=== PATIENT | male | born 2000 | race Two or more races ===

== ENCOUNTER 2021-11-04 21:10 | Emergency (ER) | payer SELFPAY ==
[~2021-11-04] VITALS: Ht 157.5 cm; Wt 59.1 kg
[2021-11-04 21:22] VITALS: BP 156/78
--- NOTE | 2021-11-04 22:45 | RAD ---
EXAM: 3 views of the left foot DATE: 11/04/2021 10:35 PM INDICATION: Reason: second toe pain stepped on a nail / Spl. Instructions: / History: COMPARISON: No Prior FINDINGS: There are punctate metallic foreign bodies residing at the cortical surface of the second middle phal anx. There is a subtle lucency extending to the articular surface suggestive of a nondisplaced fractu re. Joint spaces are preserved without significant degenerative/proliferative change. No significant soft tissue swelling. IMPRESSION: Radiographic findings of a nondisplaced intra-articular fracture of the second middle phalanx with pu nctate retained metallic foreign bodies. Electronically signed by: Bharat Clay DO (11/04/2021 10:43 PM) [facility]
--- NOTE | 2021-11-04 23:06 | PHYS DOC ---
Past Medical History Past Surgical History: No Surgical History General Adult EDM: Chief Complaint: FOOT INJURY PAIN HPI: HPI: Patient is a 21 year old male with no significant medical history who presents the ED today complaining of puncture wound to the left second toe. Patient states he stepped on a nail 5 days ago and it went through and through the second left toe. Patient states he was given tetanus vaccine at [facility]. He states he has continued to have pain to the area. Rates the pain at 7 out of 10, describes the pain as throbbing and intermittent worse on weightbearing. Review of Systems: Review of Systems: Constitutional: Denies fever or chills. [] Musculoskeletal: Reports puncture wound to the left second toe Integument: Denies rash. [] Neurologic: Denies headache, focal weakness or sensory changes. [] ] Psychiatric: Denies depression or anxiety. [] Heart Score: C/O Chest Pain: N/A Risk Factors: Risk Factors: DM, Current or recent (<one month) smoker, HTN, HLP, family history of CAD, obesity. Risk Scores: Score 0 - 3: 2.5% MACE over next 6 weeks - Discharge Home Score 4 - 6: 20.3% MACE over next 6 weeks - Admit for Clinical Observation Score 7 - 10: 72.7% MACE over next 6 weeks - Early Invasive Strategies Allergies: Allergies: Allergies Coded Allergies Type Severity Reaction Last Updated Verified No Known Drug Allergies 11/04/21 No Physical Exam: PE: Constitutional: Well developed, well nourished, no acute distress, non-toxic appearance. [] Skin: see extremity Back: No tenderness, no CVA tenderness. [] Extremities: Mid phalanx of the left second toe with a puncture on the dorsal aspect, with exit wound ventral aspect mid phalanxy of the second toe. There is no signs of infection, there is no drainage. There is diffuse tenderness to t he mid phalanx of the toe. Patient able to wiggle the left second toe. +2 left pedal pulse. Cap refill less than 2 seconds the left second toe Neurologic: Alert and oriented X 3, normal motor function, normal sensory function, no focal deficits noted. [] Psychologic: Affect normal, judgement normal, mood normal. [] Current Patient Data: Vital Signs: Vital Signs Date Time Temp Pulse Resp B/P (MAP) Pulse Ox O2 Delivery O2 Flow Rate FiO2 11/04/21 21:22 98.0 83 20 156/78 (104) 99 Room Air 98.0 EKG: EKG: [] Radiology/Procedures: Radiology/Procedures: []PROCEDURE: FOOT LEFT 3V EXAM: 3 views of the left foot DATE: 11/04/2021 10:35 PM INDICATION: Reason: second toe pain stepped on a nail / Spl. Instructions: / History: COMPARISON: No Prior FINDINGS: There are punctate metallic foreign bodies residing at the cortical surface of t he second middle phalanx. There is a subtle lucency extending to the articular surface suggestive of a nondisplaced fracture. Joint spaces are preserved without significant degenerative/proliferative change. No significant soft tissue swelling. IMPRESSION: Radiographic findings of a nondisplaced intra-articular fracture of the second middle phalanx with punctate retained metallic foreign bodies. Electronically signed by: Eleanor Mcfadden DO (11/04/2021 10:43 PM) [facility] DICTATED and SIGNED BY: ELEANOR MCFADDEN DO DATE: 11/04/21 [id number] 0 Course & Med Decision Making: Course & Med Decision Making Pertinent Labs and Imaging studies reviewed. (See chart for details) This is a 21-year-old male patient presenting to the ED today to be evaluated for puncture wound on the left second toe that he sustained 5 days ago after stepping on a nail that went through his left second toe. There is no infection to the region. Patient received a tetanus vaccine at [facility] on Wednesday. Left foot x-rays interpreted by radiologist were noted for radiographic findings of a nondisplaced intra-articular fracture of the second middle phalanx with punctate retained metallic foreign bodies. I spoke to -he stated if there is no infection patient can be discharged to home and follow-up in the clinic. He requested we discharge patient on Cipro Left second toe and third toes were malachi taped by me and patient placed in an orthopedic shoe by me. Neurovascular exam is normal. Patient was given 1 g of Rocephin IM in the ED, he was started on Cipro. He was provided orthopedic doctor for follow-up and provided strict return precautions Dragon Disclaimer: Dragon Disclaimer: This electronic medical record was generated, in whole or in part, using a voice recognition dictation system. Departure Departure Impression: Primary Impression: Nondisplaced fracture of middle phalanx of left lesser toe(s), initial encounter for open fracture Disposition: HOME / SELF CARE / HOMELESS Condition: STABLE Referrals: NO PCP (PCP) KINA SOSA MD Call his office tomorrow and set up a follow-up appointment Patient Instructions: Toe Fracture, [id number] Additional Instructions: You stepped on a nail and broke your left second toe, you also have tiny metallic pieces in that toe. This pieces typically make their way of the foot at some point. You can wash your left foot once a day and apply Neosporin to the puncture wounds. Please take the prescribed antibiotics until completed. Please contact the provided orthopedic doctor tomorrow morning and set up a follow-up appointment. Please return to the emergency room at any point the wound condition gets worse including but not limited to redness, warmth, yellow drainage from the area or you start running a fever. Scripts Naproxen (NAPROXEN) 500 Mg Tablet 1 TAB PO BID for pain, #20 TAB 0 Refills Prov: AKHIL PORTILLO APRN 11/04/21 Hydrocodone Bit/Acetaminophen (HYDROCODONE-APAP 5-325 ) 1 Tab Tablet 1 TAB PO PRN Q6HRS PRN for PAIN, #24 TAB 0 Refills Prov: AKHIL PORTILLO APRN 11/04/21 Ciprofloxacin Hcl (CIPRO) 500 Mg Tablet 1 TAB PO BID for 10 Days, #20 TAB 0 Refills Prov: AKHIL PORTILLO APRN 11/04/21 AKHIL PORTILLO APRN Nov 04, 2021 23:06
[2021-11-04] MEDS ORDERED: NAPROXEN 500 MG TABLET PO ONE (23:45)
[2021-11-04] MEDS ORDERED: HYDR-2761 PO (23:45)
[2021-11-04] MEDS ORDERED: HYDROcodone/APAP 5/325MG 1 TAB TABLET PO ONE (23:45)
[2021-11-04] MEDS ORDERED: LIDOCAINE 1% PF 2 ML VIAL. INJ ONE (23:45)
[2021-11-04] MEDS ORDERED: CIPROFLOXACIN HCL 250 MG TABLET. PO ONE (23:45)
[2021-11-04] MEDS ORDERED: CIPR500T94 PO (23:45)
[2021-11-04] MEDS ORDERED: cefTRIAXone IM 1 GM VIAL IM ONE (23:45)
[2021-11-04] MEDS ORDERED: NAPR-514 PO (23:45)
== END 2021-11-05 00:03 | disposition home or self-care (01) ==
LOC: ER 21:10
DX: S92.522A Displaced fracture of middle phalanx of left lesser toe(s), initial encounter for closed fracture (principal); W22.8XXA Striking against or struck by other objects, initial encounter; Y93.89 Activity, other specified; Y92.89 Other specified places as the place of occurrence of the external cause; Y99.8 Other external cause status
CPT/HCPCS: 73630; 96372; 99284; J0696; J3490